=== PATIENT | male | born 1980 | race Caucasian/White ===

== ENCOUNTER 2022-06-13 20:26 | Emergency (ER) | payer SELFPAY ==
[~2022-06-13] VITALS: Ht 175.3 cm; Wt 81.6 kg
[2022-06-13 20:40] VITALS: BP_SYST 150
--- NOTE | 2022-06-13 23:58 | NUR ---
Patient to ER bed 1 to gown for evaluation. Side rails up. Report given to Nyasia LIN.
--- NOTE | 2022-06-14 00:12 | NUR ---
BIB AMBULANCE FROM STREET WITH C/O ETOH. NO S/S OF ANY DISTRESS NOTED, DENIES ANY PAIN AT THIS TIME. PLACED ON MONITOR, INFORMED OF PLAN OF CARE, SIDE RAILS UP WILL CONTINUE TO MONITOR.
--- NOTE | 2022-06-14 02:20 | NUR ---
PATIENT RESTING AROUSABLE , NO VOICED C/O, WILL CONTINUE TO MONITOR.
[2022-06-14 04:28] VITALS: BP_SYST 106
--- NOTE | 2022-06-14 04:31 | NUR ---
PATIENT RESTING IN BED WITHOUT ANY C/O REMAINS EASY TO AROUSE, SIDE RAILS WILL CONTINUE TO MONITOR.
--- NOTE | 2022-06-14 05:50 | NUR ---
[facility] attempting to arrouse patient from sleep. Patient began to shout obscenities at [facility] Lower[facility] and "Where the fuck [id number] my ID?" Sebastián informed the pt we did not have his ID and that he had been discharged. Pt shouted, "Fuck you I'm not leaving!" Pt began to posture and exhibit intimidating body movements. [facility] contacted. I spoke with Deputy Blackwell and requested deputies be dispatched our location. [facility] Security notified arrived in the ER to wtiness the patient's aggressive behavior. Security remained in ER, awaiting arrival [employer] deputies.
--- NOTE | 2022-06-14 05:53 | NUR ---
PATIENT AWAKE NON-COMPLIANT WITH BEING DISCHARGED, PATIENT IS YELLING, 'S CALLED, AWAITING ARRIVAL.
--- NOTE | 2022-06-14 06:07 | NUR ---
[facility] on scene and in room with the patient.
--- NOTE | 2022-06-14 06:25 | NUR ---
'S ARE HERE PATIENT REFUSED TO SIGN HIS DISCHARGE PAPERWORK. CONTINUES TO YELL.
== END 2022-06-14 06:25 | disposition home or self-care (01) ==
LOC: SED 20:26
DX: F10.129 Alcohol abuse with intoxication, unspecified (principal); Z79.899 Other long term (current) drug therapy; Y90.6 Blood alcohol level of 120-199 mg/100 ml
CPT/HCPCS: 99283